=== PATIENT | male | born 1935 | race Caucasian/White ===

== ENCOUNTER 2016-12-17 22:39 | Emergency (ER) | payer OTHER ==
[~2016-12-17] VITALS: Ht 185.4 cm; Wt 79.4 kg
[~2016-12-17 22:39] MED LIST: ACCUPRIL; ALPRAZOLAM; AMITRIPTYLINE; ASPIRIN; GLUCOPHAGE
[2016-12-18 00:19] VITALS: BP 134/71
== END 2016-12-17 23:42 | disposition home or self-care (01) ==
LOC: ER 22:39
DX: Z48.01 Encounter for change or removal of surgical wound dressing (principal); K91.840 Postprocedural hemorrhage of a digestive system organ or structure following a digestive system procedure; I10 Essential (primary) hypertension; E78.00 Pure hypercholesterolemia, unspecified; E11.40 Type 2 diabetes mellitus with diabetic neuropathy, unspecified; Y84.8 Other medical procedures as the cause of abnormal reaction of the patient, or of later complication, without mention of misadventure at the time of the procedure; Y92.89 Other specified places as the place of occurrence of the external cause

== ENCOUNTER 2017-05-17 13:39 | Inpatient (IN) | payer OTHER ==
[~2017-05-17] VITALS: Ht 188 cm; Wt 84.5 kg
--- NOTE | ~2017-05-17 | EKG ---
[address] [address] ELECTROCARDIOGRAM REPORT Name: ETTA COURTNEY Room #: 202-P ADM IN M.R.#: [id number] Admission: 05/17/17 Attend Phys: Jori Hinton MD Discharge: Date of : 31 Report #: [id number] THIS REPORT FOR: //name// [facility] ED Test Date: 2017-05-17 Test Time: 13:48:00 Pat Name: ETTA COURTNEY Department: Room: 202 Gender: M Pick Up Man: KANNAN : 1935 Requested By: Jemal Carlisle Order Number: [id number] MD: Anderson Pizarro Measurements Intervals [place] Rate: 150 P: [place]: QRS: -11 QRSD: 80 T: 153 QT: 290 QTc: 459 Interpretive Statements Atrial fibrillation with rapid V-rate Abnormal R-wave progression, early transition Nonspecific ST and T wave abnormality Compared to ECG 06/02/2009 10:00:54 Atrial fibrillation has replaced sinus rhythm Nonspecific change in the ST and T-wave segments Electronically Signed On 05-19-2017 14:00:48 [employer]IC[employer] by Anderson Pizarro [email or web address] <ELECTRONICALLY SIGNED> By: Anderson Pizarro MD, FACC 05/19/17 1400 1348 1348 Anderson Pizarro MD, [facility] /EPI
--- NOTE | ~2017-05-17 | 2DMMODE ---
[facility] [address] [place] [address] 2 D/M-MODE ECHOCARDIOGRAM Name: ETTA COURTNEY Room #: 202-P [facility] IN ..#: [id number] Admission: 05/17/17 Attend Phys: Jori Hinton MD Discharge: Date of : 31 Date of Service: 05/18/17 1502 Report #: [id number] THIS REPORT FOR: //name// APPROVED REPORT Study performed: 05/18/2017 10:01:41 EXAM: Comprehensive 2D, Doppler, and color-flow Echocardiogram Patient Location: Bedside Room #: 202 Status: on-call BSA: 2.11 HR: 106 bpm BP: 107/60 mmHg Rhythm: Atrial Fibrillation Other Information Study Quality: Fair Indications New onset Afib 2D Dimensions RVDd: 31.53 mm LVEF(%): 48.14 (>50%) IVSd: 12.44 (7-11mm) LVOT Diam: 22.66 (18-24mm) LVDd: 39.34 mm PWd: 12.56 (7-11mm) Ascending Ao: 35.17 (22-36mm) LVDs: 29.96 (25-40mm) Aortic Root: 39.64 mm Saldivar's LVEF: 48.14 % Volumes Left Atrial Volume (Systole) Single Plane 4CH: 43.17 mL Single Plane 2CH: 61.39 mL LA ESV Index: 27.00 mL/m2 Aortic Valve AoV Peak Dustin.: 1.23 m/s AO Peak Gr.: 7.95 mmHg LVOT Max P.71 mmHg LVOT Max V: 1.08 m/s SCOTT Vmax: 3.53 cm2 Mitral Valve MV Decel. Time: 149.27 ms MV E Max Dustin.: 1.02 m/s [facility] [place] [address] 2 D/M-MODE ECHOCARDIOGRAM Name: ETTA COURTNEY Room #: 202-P ADM IN M.R.#: [id number] Admission: 05/17/17 Attend Phys: Jori Hinton MD Discharge: Date of : 31 Date of Service: 05/18/17 1502 Report #: [id number] Pulmonary Valve PV Peak Dustin.: 1.15 m/s PV Peak Gr.: 5.32 mmHg Tricuspid Valve TR Peak Dustin.: 2.66 m/s RAP Estimate: 15.00 mmHg TR Peak Gr.: 28.00 mmHg PA Pressure: 43.00 mmHg Left Ventricle The left ventricle is normal size. There is normal LV segmental wall motion. Mild concentric left ventricular hypertrophy. Left ventricular systolic function is normal. LVEF is 60%. This study is not technically sufficient to allow evaluation of the LV diastolic function due to atrial fibrillation. Right Ventricle The right ventricle is normal size. The right ventricular systolic function is normal. Atria The left atrium size is normal. The right atrium size is normal. Aortic Valve The Aortic valve is mildly sclerotic. Mild aortic regurgitation. There is no aortic valvular stenosis. Mitral Valve The mitral valve is normal in structure. Mild mitral annular calcification. Mild mitral regurgitation. Tricuspid Valve The tricuspid valve is normal in structure. Moderate tricuspid regurgitation. Estimated PAP is 40-45mmHg. Pulmonic Valve The pulmonary valve is normal in structure. Trace pulmonic regurgitation. Great Vessels Aortic root is mildly dilated at 4.0cm. IVC is dilated and collapses <50% with inspiration. Pericardium There is no pericardial effusion. [facility] [address] [place] [address] 2 D/M-MODE ECHOCARDIOGRAM Name: SHERWINETTA Andrea Room #: 202-P [facility] IN .R.#: [id number] Admission: 05/17/17 Attend Phys: Jori Hinton MD Discharge: Date of : 31 Date of Service: 05/18/17 1502 Report #: [id number] <Conclusion> The left ventricle is normal size. LVEF is 60%. The Aortic valve is mildly sclerotic. Mild aortic regurgitation. The mitral valve is normal in structure. Mild mitral annular calcification. Mild mitral regurgitation. The tricuspid valve is normal in structure. Moderate tricuspid regurgitation. Estimated PAP is 40-45mmHg. The pulmonary valve is normal in structure. Trace pulmonic regurgitation. There is no pericardial effusion. <ELECTRONICALLY SIGNED> By: Drew Nava MD 05/18/17 1502 01 01 Drew Nava MD /INF
[2017-05-17 13:43] VITALS: BP 120/87
[2017-05-17 14:06] LABS: ABSOLUTE NEUTROPHILS 3.8 thou/uL (1.4-8.2); BASOPHILS 0.3 % (0.0-2.0); EOSINOPHILS 1.1 % (0.0-3.0); HEMATOCRIT 46.9 % (42.0-52.0); HEMOGLOBIN 16.3 gm/dL (14.0-18.0); LYMPHOCYTES 29.8 % (24.0-44.0); MCHC 34.7 g/dL (28.0-37.0); MCV 86.6 fL (80.0-100.0); MONOCYTES 10.2 % (1.0-8.0); PLATELET COUNT 205 thou/uL (150-400); POLYS 58.6 % (36.0-66.0); RBC 5.41 mil/uL (4.50-6.00); RDW 13.9 % (10.5-14.5); WBC 6.5 thou/uL (4.0-11.0)
[2017-05-17 14:19] LABS: CALCIUM 9.2 mg/dL (8.5-10.1); CREATININE 1.2 mg/dL (0.7-1.3); POTASSIUM 4.3 mmol/L (3.5-5.1)
[2017-05-17 14:29] LABS: TROPONIN-I 0.07 ng/mL (<0.06)
[2017-05-17 15:21] VITALS: BP 121/64
[2017-05-17 16:26] VITALS: BP 141/62
[2017-05-17] MEDS ORDERED: XANAX 0.25 MG0.25 MG PO (16:51)
[2017-05-17] MEDS ORDERED: NEURONTIN600 MG PO (16:51)
[2017-05-17] MEDS ORDERED: METFORMIN HCL500 MG PO (16:53)
[2017-05-17] MEDS ORDERED: LIPITOR10 MG PO (16:54)
[2017-05-17] MEDS ORDERED: QUINAPRIL HCL20 MG PO (16:57)
[2017-05-17] MEDS ORDERED: OMEGA-31000 M1 PO (16:59)
[2017-05-17] MEDS ORDERED: FLAX SEED OIL1000 MG PO (16:59)
[2017-05-17] MEDS ORDERED: B12 SUBLING (17:01)
[2017-05-17] MEDS ORDERED: ALPHA LIPOIC A100 MG PO (17:02)
[2017-05-17 19:03] VITALS: BP 112/56
[2017-05-17 23:30] VITALS: BP 116/66
[2017-05-18] VITALS (10 sets, daily range): BP systolic 92–136; BP diastolic 57–72
[2017-05-19 03:50] VITALS: BP 131/63
[2017-05-19 04:00] LABS: ABSOLUTE NEUTROPHILS 3.1 thou/uL (1.4-8.2); BASOPHILS 0.6 % (0.0-2.0); HEMATOCRIT 41.7 % (42.0-52.0); HEMOGLOBIN 14.5 gm/dL (14.0-18.0); LYMPHOCYTES 34.1 % (24.0-44.0); MCH 30.1 pg (26.0-34.0); MCHC 34.7 g/dL (28.0-37.0); MCV 86.5 fL (80.0-100.0); MONOCYTES 8.5 % (1.0-8.0); PLATELET COUNT 179 thou/uL (150-400); POLYS 53.8 % (36.0-66.0); RBC 4.81 mil/uL (4.50-6.00); RDW 13.8 % (10.5-14.5); WBC 5.8 thou/uL (4.0-11.0)
[2017-05-19 04:04] LABS: CALCIUM 8.6 mg/dL (8.5-10.1); MAGNESIUM 1.6 mg/dL (1.8-2.4); POTASSIUM 3.9 mmol/L (3.5-5.1)
[2017-05-19 08:30] VITALS: BP 129/78
[2017-05-19 18:02] VITALS: BP 95/55
[2017-05-19 19:14] VITALS: BP 107/63
[2017-05-20 03:31] VITALS: BP 107/72
[2017-05-20 07:30] VITALS: BP 96/49
[2017-05-20] MEDS ORDERED: ELIQUIS5 MG PO (10:44)
[2017-05-20] MEDS ORDERED: METOPROLOL SUCC50 MG PO (10:44)
[2017-05-20 11:05] VITALS: BP 113/78
[2017-05-20] MEDS ORDERED: LANOXIN 0.120.125 M1 PO (11:17)
[2017-05-20 11:36] VITALS: BP 96/49
== END 2017-05-20 15:45 | disposition home or self-care (01) | DRG 310 ==
LOC: ER 13:39 → EROBS 14:56 → 2N 14:56
PROVIDERS: Internal Medicine; Physician Assistant
DX: I48.91 Unspecified atrial fibrillation (principal); I10 Essential (primary) hypertension; E78.00 Pure hypercholesterolemia, unspecified; E78.5 Hyperlipidemia, unspecified; E78.1 Pure hyperglyceridemia; E83.42 Hypomagnesemia; E11.42 Type 2 diabetes mellitus with diabetic polyneuropathy; Z87.891 Personal history of nicotine dependence; Z79.82 Long term (current) use of aspirin; Z79.899 Other long term (current) drug therapy; Z85.51 Personal history of malignant neoplasm of bladder; Z90.89 Acquired absence of other organs; Z82.49 Family history of ischemic heart disease and other diseases of the circulatory system
CPT/HCPCS: 10078

== ENCOUNTER 2017-07-08 04:17 | Inpatient (IN) | payer OTHER ==
[2017-07-08] VITALS (8 sets, daily range): BP systolic 99–126; BP diastolic 62–81
[~2017-07-08] VITALS: Ht 185.4 cm; Wt 79.0 kg
--- NOTE | ~2017-07-08 | EKG ---
[address] [address] ELECTROCARDIOGRAM REPORT Name: ETTA COURTNEY Room #: 213-P ADM IN M.R.#: [id number] Admission: 07/08/17 Attend Phys: Moreno Ward DO Discharge: Date of : 31 Report #: [id number] THIS REPORT FOR: //name// [facility] ED Test Date: 2017-07-08 Test Time: 04:32:49 Pat Name: ETTA COURTNEY Department: Room: 213 Gender: M News Reporter: JULIO : 1935 Requested By: Massimo Desai Order Number: [id number] MD: Anderson Pizarro Measurements Intervals [place] Rate: 121 P: CT: QRS: -24 QRSD: 86 T: 48 QT: 342 QTc: 486 Interpretive Statements Atrial fibrillation Borderline left axis deviation Borderline repolarization abnormality Borderline prolonged QT interval Compared to ECG 05/17/2017 13:48:00 No significant change was found Electronically Signed On 07-08-2017 8:09:00 [employer] by Anderson Pizarro [email or web address] <ELECTRONICALLY SIGNED> By: Anderson Pizarro MD, [facility] 07/08/17 0809 0432 0432 Anderson Pizarro MD, [facility] /EPI
[~2017-07-08 04:17] MED LIST changes: +ALPHA LIPOIC A100 MG PO; +B12 SUBLING; +ELIQUIS5 MG PO; +FLAX SEED OIL1000 MG PO; +LANOXIN 0.120.125 M1 PO; +LIPITOR10 MG PO; +METFORMIN HCL500 MG PO; +METOPROLOL SUCC50 MG PO; +NEURONTIN600 MG PO; +OMEGA-31000 M1 PO; +QUINAPRIL HCL20 MG PO; +XANAX 0.25 MG0.25 MG PO
[2017-07-08 04:42] LABS: HEMATOCRIT 46.3 % (42.0-52.0); HEMOGLOBIN 15.8 gm/dL (14.0-18.0); MCH 30.2 pg (26.0-34.0); MCHC 34.1 g/dL (28.0-37.0); MCV 88.5 fL (80.0-100.0); RBC 5.23 mil/uL (4.50-6.00); RDW 13.3 % (10.5-14.5); WBC 5.4 thou/uL (4.0-11.0)
[2017-07-08 04:50] LABS: ANION GAP 13 mmol/L (7-16); BUN 17 mg/dL (7-18); CALCIUM 9.8 mg/dL (8.5-10.1); CHLORIDE 106 mmol/L (98-107); CO2 25 mmol/L (21-32); CREATININE 1.1 mg/dL (0.7-1.3); GLUCOSE 168 mg/dL (74-106); POTASSIUM 3.8 mmol/L (3.5-5.1); SODIUM 144 mmol/L (136-145)
[2017-07-08 04:59] LABS: MAGNESIUM 1.7 mg/dL (1.8-2.4); TROPONIN-I < 0.04 ng/mL (<0.06)
[2017-07-08] MEDS ORDERED: INDAPAMIDE2.5 MG PO (06:39)
[2017-07-09 04:30] VITALS: BP 100/57
[2017-07-09 05:41] LABS: ABSOLUTE NEUTROPHILS 2.5 thou/uL (1.4-8.2); BASOPHILS 0.8 % (0.0-2.0); EOSINOPHILS 2.6 % (0.0-3.0); HEMATOCRIT 42.6 % (42.0-52.0); HEMOGLOBIN 14.9 gm/dL (14.0-18.0); LYMPHOCYTES 38.3 % (24.0-44.0); MCH 30.8 pg (26.0-34.0); MCV 88.1 fL (80.0-100.0); MONOCYTES 9.3 % (1.0-8.0); PLATELET COUNT 173 thou/uL (150-400); RBC 4.83 mil/uL (4.50-6.00); RDW 13.1 % (10.5-14.5)
[2017-07-09 05:50] LABS: CREATININE 1.1 mg/dL (0.7-1.3); POTASSIUM 3.9 mmol/L (3.5-5.1)
[2017-07-09 07:25] VITALS: BP 110/70
== END 2017-07-09 07:55 | disposition left against medical advice (07) | DRG 310 ==
LOC: ER 04:17 → EROBS 05:37 → 2N 05:37
PROVIDERS: Emergency Medicine; Family Medicine
DX: I48.0 Paroxysmal atrial fibrillation (principal); I10 Essential (primary) hypertension; E11.42 Type 2 diabetes mellitus with diabetic polyneuropathy; Z53.21 Procedure and treatment not carried out due to patient leaving prior to being seen by health care provider; E78.00 Pure hypercholesterolemia, unspecified; Z85.828 Personal history of other malignant neoplasm of skin; Z85.51 Personal history of malignant neoplasm of bladder; Z90.49 Acquired absence of other specified parts of digestive tract; Z79.899 Other long term (current) drug therapy; Z87.891 Personal history of nicotine dependence; Z82.49 Family history of ischemic heart disease and other diseases of the circulatory system; Z79.4 Long term (current) use of insulin
CPT/HCPCS: 10081

== ENCOUNTER → 2019-10-22 | Outpatient (CLI) | payer OTHER ==
[~2019-10-22] MED LIST changes: +INDAPAMIDE2.5 MG PO
== END ==
LOC: SJCVC 09:51
PROVIDERS: ATTEND Internal Medicine
DX: I10 Essential (primary) hypertension (principal); I48.0 Paroxysmal atrial fibrillation; E78.5 Hyperlipidemia, unspecified; E11.9 Type 2 diabetes mellitus without complications; I25.10 Atherosclerotic heart disease of native coronary artery without angina pectoris; Z90.49 Acquired absence of other specified parts of digestive tract; Z79.899 Other long term (current) drug therapy; Z87.891 Personal history of nicotine dependence